=== PATIENT | female | born 1985 | race Caucasian/White ===

== ENCOUNTER 2017-11-18 21:34 | Outpatient (CLI) | payer MEDICAID ==
[2017-11-18 22:51] LABS: ADD MAN DIFF? NO
[2017-11-18 22:53] LABS: WHITE BLOOD COUNT 9.9 10^3/ul (4.8-10.8)
[2017-11-18 22:53] LABS: BASOPHILS % 0.3 % (0.0-2.0); EOSINOPHILS # 0.1 10^3/ul (0.0-0.5); EOSINOPHILS % 1.3 % (0.0-7.0); HEMATOCRIT 35.9 % (37.0-47.0); HEMOGLOBIN 12.2 g/dl (12.0-16.0); LYMPHOCYTES # 2.2 10^3/ul (0.8-2.9); LYMPHOCYTES % 22.7 % (15.0-51.0); MEAN CORPUSCULAR HEMOGLOBIN 31.4 pg (29.0-33.0); MEAN CORPUSCULAR VOLUME 92.3 fl (82.0-101.0); MONOCYTE # 0.7 10^3/ul (0.3-0.9); MONOCYTES % 7.3 % (0.0-11.0); NEUTROPHIL # 6.7 10^3/ul (1.6-7.5); NEUTROPHILS % 67.6 % (39.0-77.0); PLATELET COUNT 321 10^3/UL (140-415); RED BLOOD COUNT 3.89 10^6/ul (4.20-5.40); RED CELL DISTRIBUTION WIDTH 13.1 % (11.5-14.5)
[2017-11-18 23:03] LABS: ADD UMIC YES; UR ASCORBIC ACID NEGATIVE (NEGATIVE); UR BACTERIA FEW /HPF (NONE SEEN); UR BILIRUBIN (Dip) NEGATIVE (NEGATIVE); UR BLOOD (Dip) NEGATIVE (NEGATIVE); UR CLARITY CLEAR (CLEAR); UR COLOR YELLOW (YELLOW); UR GLUCOSE (Dip) NEGATIVE (NEGATIVE); UR KETONES (Dip) NEGATIVE (NEGATIVE); UR LEUKOCYTE ESTERASE (Dip) 1+ Leu/ul (NEGATIVE); UR NITRITE (Dip) NEGATIVE (NEGATIVE); UR RBC 0 /HPF (0-5); UR SPECIFIC GRAVITY (Dip) 1.015 (1.003-1.030); UR SQUAMOUS EPITHELIAL CELL FEW /HPF (FEW); UR TOTAL PROTEIN (Dip) NEGATIVE (NEGATIVE); UR UROBILINOGEN (Dip) NEGATIVE (NEGATIVE); UR WBC 3 /HPF (0-5)
== END 2017-11-19 00:46 | disposition home or self-care (01) ==
LOC: OBT 21:34 → L-D 21:35
DX: O62.9 Abnormality of forces of labor, unspecified (principal); Z3A.33 33 weeks gestation of pregnancy
CPT/HCPCS: 76817; 76818; 81001; 85025

== ENCOUNTER 2018-01-08 13:00 | Inpatient (IN) | payer MEDICAID ==
[2018-01-08] MEDS ORDERED: MISOPROSTOL 200 MCG TAB PR ×2 (14:30→21:00)
[2018-01-08] MEDS ORDERED: METHYLERGONOVINE 0.2 MG INJ IM ×2 (14:30→21:00)
[2018-01-08] MEDS ORDERED: OXYTOCIN 30 UNITS/LR 500 ML IV ×2 (14:30→21:00)
[2018-01-08] MEDS ORDERED: CARBOPROST 250 MCG INJ IM ×2 (14:30→21:00)
[2018-01-08 14:35] LABS: ADD MAN DIFF? NO
[2018-01-08 14:36] LABS: BASOPHILS % 0.3 % (0.0-2.0); EOSINOPHILS # 0.1 10^3/ul (0.0-0.5); EOSINOPHILS % 0.5 % (0.0-7.0); HEMATOCRIT 41.1 % (37.0-47.0); HEMOGLOBIN 13.5 g/dl (12.0-16.0); LYMPHOCYTES # 1.7 10^3/ul (0.8-2.9); LYMPHOCYTES % 14.7 % (15.0-51.0); MEAN CORPUSCULAR HEMOGLOBIN 30.3 pg (29.0-33.0); MEAN CORPUSCULAR HGB CONC 32.8 g/dl (32.0-37.0); MEAN CORPUSCULAR VOLUME 92.4 fl (82.0-101.0); MEAN PLATELET VOLUME 9.6 fl (7.4-10.4); MONOCYTE # 0.7 10^3/ul (0.3-0.9); MONOCYTES % 5.9 % (0.0-11.0); NEUTROPHIL # 9.1 10^3/ul (1.6-7.5); NEUTROPHILS % 78.2 % (39.0-77.0); PLATELET COUNT 288 10^3/UL (140-415); RED BLOOD COUNT 4.45 10^6/ul (4.20-5.40); RED CELL DISTRIBUTION WIDTH 13.7 % (11.5-14.5)
[2018-01-08 14:36] LABS: WHITE BLOOD COUNT 11.6 10^3/ul (4.8-10.8)
[2018-01-08 14:56] LABS: INR 0.87; PROTIME 11.9 Sec (11.9-14.9); PT RATIO 0.9
[2018-01-08 14:57] LABS: PARTIAL THROMBOPLASTIN TIME 28.7 Sec (25.0-35.0)
[2018-01-08] MEDS: LACTATED RINGER'S 1,000 ML IV ×3 (15:02→23:06)
[2018-01-08] MEDS: AMPICILLIN 2 GM/NS (PMX) 100 ML IVPB (15:06)
[2018-01-08 15:58] LABS: HEPATITIS B SURFACE ANTIGEN NEGATIVE (NEGATIVE)
[2018-01-08] MEDS: CEFAZOLIN 2 GM/50 ML (PMX) 50 ML IV ×2 (16:15→21:30)
[2018-01-08] MEDS: OXYTOCIN 30 UNITS/LR 500 ML IV (18:05)
[2018-01-08] MEDS ORDERED: METOCLOPRAMIDE 10 MG INJ IV (18:30)
[2018-01-08] MEDS ORDERED: NALOXONE (0.4 MG/ML) INJ IV (18:30)
[2018-01-08] MEDS ORDERED: HYDROmorphONE 0.5 MG/0.5 ML SYG IV ×2 (18:30)
[2018-01-08] MEDS ORDERED: KETOROLAC 30 MG INJ IV (18:30)
[2018-01-08] MEDS ORDERED: DIPHENHYDRAMINE 50 MG INJ IV ×2 (18:30)
[2018-01-08] MEDS ORDERED: ONDANSETRON 4 MG INJ IV (18:30)
[2018-01-08] MEDS ORDERED: HYDROmorphONE 1 MG/5 ML IV SYRINGE IV ×2 (18:30)
[2018-01-08] MEDS: KETOROLAC 30 MG INJ IV (19:54)
[2018-01-08 20:09] LABS: RAPID PLASMA REAGIN NONREACTIVE (NR)
[2018-01-08] MEDS ORDERED: OXYCODONE/ACETAMINOPHEN (5/325) TAB PO (21:00)
[2018-01-08] MEDS ORDERED: NA PHOSPHATE/BIPHOS 133 ML ENEMA PR (21:00)
[2018-01-08] MEDS: SENNA/DOCUSATE NA (8.6MG/50MG) TAB PO (21:30)
[2018-01-08] MEDS: LANOLIN 7 GM TUBE TOP (21:31)
[2018-01-08] MEDS: IBUPROFEN 800 MG TAB PO (22:00)
[2018-01-08] MEDS ORDERED: IBUPROFEN 800 MG TAB PO (22:00)
[2018-01-08] MEDS: CLINDAMYCIN 300 MG CAP PO (23:12)
[2018-01-08] MEDS: ONDANSETRON 4 MG INJ IV (23:12)
[2018-01-09] MEDS: CEFAZOLIN 2 GM/50 ML (PMX) 50 ML IV ×2 (05:09→13:52)
[2018-01-09] MEDS: CLINDAMYCIN 300 MG CAP PO ×4 (05:22→23:29)
[2018-01-09] MEDS: IBUPROFEN 800 MG TAB PO ×3 (06:00→21:32)
[2018-01-09 07:53] LABS: ADD MAN DIFF? NO
[2018-01-09] MEDS: LACTATED RINGER'S 1,000 ML IV ×2 (07:59→20:38)
[2018-01-09 08:00] LABS: WHITE BLOOD COUNT 9.4 10^3/ul (4.8-10.8)
[2018-01-09 08:00] LABS: BASOPHILS % 0.4 % (0.0-2.0); EOSINOPHILS % 0.3 % (0.0-7.0); HEMOGLOBIN 11.5 g/dl (12.0-16.0); LYMPHOCYTES # 1.7 10^3/ul (0.8-2.9); LYMPHOCYTES % 17.7 % (15.0-51.0); MEAN CORPUSCULAR HEMOGLOBIN 30.9 pg (29.0-33.0); MEAN CORPUSCULAR HGB CONC 33.8 g/dl (32.0-37.0); MEAN CORPUSCULAR VOLUME 91.4 fl (82.0-101.0); MEAN PLATELET VOLUME 9.7 fl (7.4-10.4); MONOCYTE # 0.7 10^3/ul (0.3-0.9); MONOCYTES % 7.3 % (0.0-11.0); PLATELET COUNT 275 10^3/UL (140-415); RED BLOOD COUNT 3.72 10^6/ul (4.20-5.40); RED CELL DISTRIBUTION WIDTH 13.5 % (11.5-14.5)
[2018-01-09] MEDS: SENNA/DOCUSATE NA (8.6MG/50MG) TAB PO ×2 (08:58→21:32)
[2018-01-09] MEDS: BISACODYL 10 MG SUPP PR (18:06)
[2018-01-10] MEDS: IBUPROFEN 800 MG TAB PO ×3 (05:33→21:17)
[2018-01-10] MEDS: CLINDAMYCIN 300 MG CAP PO ×3 (05:33→18:00)
[2018-01-10] MEDS: SENNA/DOCUSATE NA (8.6MG/50MG) TAB PO ×2 (09:29→21:17)
[2018-01-10] MEDS: HYDROCODONE/APAP (5/325) TAB PO (15:10)
[2018-01-11] MEDS: CLINDAMYCIN 300 MG CAP PO ×3 (00:19→11:49)
[2018-01-11] MEDS: IBUPROFEN 800 MG TAB PO ×2 (06:19→14:14)
[2018-01-11] MEDS: SENNA/DOCUSATE NA (8.6MG/50MG) TAB PO (09:00)
[2018-01-11] MEDS: DIPHTH/TET/ACEL PERTUSS (ADULT) 0.5 ML VIAL IM* (09:56)
[2018-01-11] MEDS: MEASLES,MUMPS,RUBELLA VACCINE INJ SC* (09:57)
== END 2018-01-11 16:21 | disposition home or self-care (01) | DRG 766 ==
LOC: L-D 13:00 → PP1 20:25
PROVIDERS: Obstetrics & Gynecology
PROC: 10D00Z1 Extraction of Products of Conception, Low, Open Approach (ICD-10-PCS; principal; 2018-01-08 15:30)
DX: O34.211 Maternal care for low transverse scar from previous cesarean delivery (principal); Z37.0 Single live birth; Z3A.39 39 weeks gestation of pregnancy
CPT/HCPCS: 71046; 85025; 85610; 85730; 86592; 86850; 86900; 86901; 87340; 99464